=== PATIENT | female | born 1990 | race American Indian/Alaskan Native ===

== ENCOUNTER 2017-10-24 16:27 | Emergency (ER) | payer OTHER ==
[~2017-10-24 16:27] MED LIST: DICL-195 PO; METF-411 PO; ONDA4TAB PO; PREN-127 PO
[2017-10-24 16:31] VITALS: BP 115/72
--- NOTE | 2017-10-24 16:48 | ER Report ---
History and Physical Time Seen By MD: 16:48 Hx. of Stated Complaint: pt presents with r flank pain since yesterday. Had a non obstructive stone in Apr. States pain is different and intermittant, Pt not very active, has been drinking lots of water since stone was discovered HPI/ROS Chief Complaint: "Back Pain" HPI: 26-year-old female presents to the emergency department with her . Her is the primary historian as the patient speaks minimal Malay. The patient started having back pain with chills this morning at 11:00. The pain is located on her right posterior thoracic region. She reports using a herbal remedies from that improved her symptoms but did not resolve the pain. Her past medical history is significant for kidney stone in 2016 and 2017 and the patient is curious if that is the etiology of her pain today. The patient also reports swelling under her left breast. No treatments tried. ROS: Constitutional: reports chills, denies fever Respiratory: denies difficulty breathing or shortness of breath CV: denies chest pain GI/: reports back pain, denies changes in urination, denies changes in bowel patterns musculoskeletal: reports left anterior swelling below the breast, reports right sided thoracic pain Allergies: Coded Allergies: No Known Drug Allergies (Unverified , 10/24/17) Home Meds Active Scripts Ketorolac Tromethamine (KETOROLAC TROMETHAMINE) 10 Mg Tab, 10 MG PO Q6H for 3 Days, #12 TAB Prov:MERT WILBURN 10/24/17 Cyclobenzaprine Hcl (CYCLOBENZAPRINE HCL) 10 Mg Tablet, 10 MG PO TID Y for MUSCLE SPASMS for 5 Days, #15 TAB Prov:MERT WILBURN 10/24/17 Diclofenac Sodium (DICLOFENAC SODIUM) 75 Mg Tablet.dr, 75 MG PO TID, #20 TAB Prov:TYRONE REYES MD 04/24/17 Reported Medications Vits W-Ca,Fe,Fa(<1MG) ( VITAMINS) 1 Each Tablet, 1 EACH PO DAILY, TAB 04/24/17 Metformin Hcl (METFORMIN HCL) 500 Mg Tablet, 1 TAB PO BID, TAB 04/24/17 Discontinued Scripts Ondansetron (ZOFRAN ODT) 4 Mg Tab.rapdis, 4 MG PO Q6H Y for NAUSEA/VOMITING, # 20 TAB.CHRISSIE 0 Refills Prov:CRESCENCIOTYRONE LAM MD 04/24/17 Past Medical/Surgical History History of kidney stones in 2016 and 2017 Hx Smoking: No Hx Substance Use Disorder: No Hx Alcohol Use: No Constitutional Vital Sign - Last 24 Hours 10/24/17 16:31 Temp 98.4 Pulse 63 Resp 20 B/P (MAP) 115/72 Pulse Ox 99 O2 Delivery Room Air Intake and Output 10/24/17 10/24/17 10/25/17 14:59 22:59 06:59 Intake Total 1000 ml Balance 1000 ml Physical Exam Constitutional: 26-year-old female in no acute distress HEENT: normocephalic, atraumatic, no rhinorrhea, neck midline, no lymphadenopathy Breast: localized swelling palpated under left breast CV: clear S1 S2, no murmurs GI/: normoactive BS, suprapubic sensitivity on palpation, no CVA tenderness Musculoskeletal: moves all extremities, right sided posterior thoracic tenderness on palpation Neuro: interactive, alert and oriented, non-Malay speaking Differential diagnoses considered: UTI, pyelonephritis, kidney stone, muscular spasm Medical Decision Making Data Points Result Diagram: 10/24/17 1733 10/24/17 1733 Laboratory Hematology Test 10/24/17 16:33 10/24/17 17:33 Urine Color Colorless Urine Clarity Clear Urine pH 7.0 pH (4.8-9.5) Urine Specific Dawson 1.000 Urine Protein Negative mg/dL (NEGATIVE) Urine Glucose (UA) Negative mg/dL (NEGATIVE) Urine Ketones Negative mg/dL (NEGATIVE) Urine Blood Negative (NEGATIVE) Urine Nitrite Negative (NEGATIVE) Urine Bilirubin Negative (NEGATIVE) Urine Urobilinogen Negative mg/dL (0.2-1.9) Urine Leukocyte Esterase Negative (NEGATIVE) Urine RBC <1 /HPF (0-2/HPF) Urine WBC <1 /HPF (0-5/HPF) Urine Squamous Epithelial Cells None /LPF (</=FEW) Urine Bacteria Few /HPF (NONE-FEW) Urine Mucus None /HPF (NONE-FEW) Red Blood Count 5.09 M/uL (4.17-5.56) Mean Corpuscular Volume 85.9 fL (80.0-96.0) Mean Corpuscular Hemoglobin 25.5 pg (26.0-33.0) Mean Corpuscular Hemoglobin Concent 29.7 g/dL (32.0-36.0) Red Cell Distribution Width 13.0 % (11.5-14.5) Mean Platelet Volume 8.4 fL (7.2-11.1) Neutrophils (%) (Auto) 53.1 % (39.4-72.5) Lymphocytes (%) (Auto) 35.9 % (17.6-49.6) Monocytes (%) (Auto) 7.2 % (4.1-12.4) Eosinophils (%) (Auto) 3.3 % (0.4-6.7) Basophils (%) (Auto) 0.5 % (0.3-1.4) Nucleated RBC Relative Count (auto) 0.1 /100WBC Neutrophils # (Auto) 3.0 K/uL (2.0-7.4) Lymphocytes # (Auto) 2.0 K/uL (1.3-3.6) Monocytes # (Auto) 0.4 K/uL (0.3-1.0) Eosinophils # (Auto) 0.2 K/uL (0.0-0.5) Basophils # (Auto) 0.0 K/uL (0.0-0.1) Nucleated RBC Absolute Count (auto) 0.00 K/uL Sodium Level 135 mmol/L (137-145) Potassium Level 3.7 mmol/L (3.5-5.0) Chloride Level 99 mmol/L (98-107) Carbon Dioxide Level 24 mmol/L (22-31) Blood Urea Nitrogen 5 mg/dl (7-18) Creatinine 0.60 mg/dl (0.52-1.04) Glomerular Filtration Rate Calc > 60.0 Random Glucose 85 mg/dl (75-110) Calcium Level 9.0 mg/dl (8.4-10.2) Total Bilirubin 0.6 mg/dl (0.2-1.3) Aspartate Amino Transf (AST/SGOT) 28 U/L (0-35) Alanine Aminotransferase (ALT/SGPT) 22 U/L (0-56) Alkaline Phosphatase 39 U/L (0-126) Total Protein 8.3 g/dl (6.3-8.2) Albumin 4.1 g/dl (3.5-5.0) Human Chorionic Gonadotropin, Qual Negative (NEGATIVE) Chemistry Test 10/24/17 16:33 10/24/17 17:33 Urine Color Colorless Urine Clarity Clear Urine pH 7.0 pH (4.8-9.5) Urine Specific Dawson 1.000 Urine Protein Negative mg/dL (NEGATIVE) Urine Glucose (UA) Negative mg/dL (NEGATIVE) Urine Ketones Negative mg/dL (NEGATIVE) Urine Blood Negative (NEGATIVE) Urine Nitrite Negative (NEGATIVE) Urine Bilirubin Negative (NEGATIVE) Urine Urobilinogen Negative mg/dL (0.2-1.9) Urine Leukocyte Esterase Negative (NEGATIVE) Urine RBC <1 /HPF (0-2/HPF) Urine WBC <1 /HPF (0-5/HPF) Urine Squamous Epithelial Cells None /LPF (</=FEW) Urine Bacteria Few /HPF (NONE-FEW) Urine Mucus None /HPF (NONE-FEW) White Blood Count 5.6 k/uL (4.5-11.0) Red Blood Count 5.09 M/uL (4.17-5.56) Hemoglobin 13.0 g/dL (12.0-16.0) Hematocrit 43.7 % (34.0-47.0) Mean Corpuscular Volume 85.9 fL (80.0-96.0) Mean Corpuscular Hemoglobin 25.5 pg (26.0-33.0) Mean Corpuscular Hemoglobin Concent 29.7 g/dL (32.0-36.0) Red Cell Distribution Width 13.0 % (11.5-14.5) Platelet Count 186 K/uL (150-450) Mean Platelet Volume 8.4 fL (7.2-11.1) Neutrophils (%) (Auto) 53.1 % (39.4-72.5) Lymphocytes (%) (Auto) 35.9 % (17.6-49.6) Monocytes (%) (Auto) 7.2 % (4.1-12.4) Eosinophils (%) (Auto) 3.3 % (0.4-6.7) Basophils (%) (Auto) 0.5 % (0.3-1.4) Nucleated RBC Relative Count (auto) 0.1 /100WBC Neutrophils # (Auto) 3.0 K/uL (2.0-7.4) Lymphocytes # (Auto) 2.0 K/uL (1.3-3.6) Monocytes # (Auto) 0.4 K/uL (0.3-1.0) Eosinophils # (Auto) 0.2 K/uL (0.0-0.5) Basophils # (Auto) 0.0 K/uL (0.0-0.1) Nucleated RBC Absolute Count (auto) 0.00 K/uL Glomerular Filtration Rate Calc > 60.0 Calcium Level 9.0 mg/dl (8.4-10.2) Total Bilirubin 0.6 mg/dl (0.2-1.3) Aspartate Amino Transf (AST/SGOT) 28 U/L (0-35) Alanine Aminotransferase (ALT/SGPT) 22 U/L (0-56) Alkaline Phosphatase 39 U/L (0-126) Total Protein 8.3 g/dl (6.3-8.2) Albumin 4.1 g/dl (3.5-5.0) Human Chorionic Gonadotropin, Qual Negative (NEGATIVE) Urinalysis Test 10/24/17 16:33 Urine Color Colorless Urine Clarity Clear Urine pH 7.0 pH (4.8-9.5) Urine Specific Dawson 1.000 Urine Protein Negative mg/dL (NEGATIVE) Urine Glucose (UA) Negative mg/dL (NEGATIVE) Urine Ketones Negative mg/dL (NEGATIVE) Urine Blood Negative (NEGATIVE) Urine Nitrite Negative (NEGATIVE) Urine Bilirubin Negative (NEGATIVE) Urine Urobilinogen Negative mg/dL (0.2-1.9) Urine Leukocyte Esterase Negative (NEGATIVE) Urine RBC <1 /HPF (0-2/HPF) Urine WBC <1 /HPF (0-5/HPF) Urine Squamous Epithelial Cells None /LPF (</=FEW) Urine Bacteria Few /HPF (NONE-FEW) Urine Mucus None /HPF (NONE-FEW) ED Course/Re-evaluation ED Course 26-year-old female presents to the Emergency Department with back pain. She has a positive past medical history of kidney stones and constipation. History and physical examination obtained. Differential diagnoses considered and shared with the family. The patient was administered 1 liter of NS in the Emergency Department. CBC, CMP, UA, and abdominal and pelvic CT obtained. Laboratory tests are not indicative of infection. CT results rule out kidney stone but did suggest bladder distention and a post void residual was assessed. The patient' s post void residual was 277 mls. The patient's right thoracic pain and swelling of the left anterior chest is likely a muscular spasm. The patient has been sent home for self-care. She was prescribed Flexeril and Toradol for pain and encouraged to see a physical therapist. Decision to Disposition Date: Oct 24, 2017 Decision to Disposition Time: 19:52 Depart Departure Latest Vital Signs Vital Signs Date Time Temp Pulse Resp B/P (MAP) Pulse Ox O2 Delivery O2 Flow Rate FiO2 10/24/17 16:31 98.4 63 20 115/72 99 Room Air Impression: Primary Impression: Muscle spasm Condition: Improved Disposition: HOME OR SELF-CARE Referrals: SAMEER MORAN MD (PCP) New Scripts Ketorolac Tromethamine (KETOROLAC TROMETHAMINE) 10 Mg Tab 10 MG PO Q6H for 3 Days, #12 TAB Prov: MERT WILBURN 10/24/17 Cyclobenzaprine Hcl (CYCLOBENZAPRINE HCL) 10 Mg Tablet 10 MG PO TID Y for MUSCLE SPASMS for 5 Days, #15 TAB Prov: MERT WILBURN 10/24/17 Patient Instructions: Muscle Spasm (ED) Additional Instructions: Take Flexeril as need for muscular spasm every 4 to [address] after taking Flexeril. Take Toradol as need for pain every 4 to 6 hours. Consider seeing a physical therapist for muscular pain. Return to the Emergency department if you condition worsens. MERT WILBURN Oct 24, 2017 16:48
[2017-10-24] MEDS ORDERED: NS(*) 0.9% 1000 ML BAG 1,000 ML IV ONE (17:05)
[2017-10-24] MEDS ORDERED: IOPAMIDOL 76% 75 ML INFUS BTL 75 ML ONE (17:28)
[2017-10-24 17:40] LABS: PLATELET COUNT, AUTOMATED 186 K/uL (150-450)
--- NOTE | 2017-10-24 19:08 | RADIOLOGY IMAGING REPORT ---
FACILITY: [facility] PATIENT NAME: Destinee Welch : 1990 MR: [id number] V: [id number] EXAM DATE: ORDERING PHYSICIAN: MERT WILBURN TECHNOLOGIST: [place] [facility] [place]: Destinee Welch : 1990 Visit/Account:[id number] Date of Sevice: 10/24/2017 COMPUTED TOMOGRAPHY OF THE Abdomen and Pelvis with CONTRAST INDICATION: Back pain. TECHNIQUE: Contiguous axial 3.[address] images were obtained through the abdomen and pelvis 75 cc [id number]. Coronal and sagittal reformatted images were submitted. COMPARISON: April 24, 2017 CT. FINDINGS: Lung bases: The lung bases are clear. Liver and hepatic vasculature: Probable small subcapsular cyst in the right lobe. Gallbladder and bile ducts: Normal gallbladder. Spleen: Normal Pancreas: Normal Adrenals: Normal Kidneys, ureters and bladder: The ureters are mildly prominent. There are no obstructive calculi. Th e bladder is distended. Retroperitoneum and aorta: Normal caliber aorta. GI tract, mesentery and peritoneum: No bowel obstruction. No free fluid or free air. Normal appendix. Uterus and adnexa: Unremarkable uterus. Small volume of fluid in the cul-de-sac is likely physiologic . Bones and soft tissues: No acute osseous abnormality. IMPRESSION: 1. The bladder is distended, and the ureters are mildly dilated bilaterally, but there is no obstruct ally stone. 2. Normal appendix. 3. Otherwise, no evidence of acute intra-abdominal abnormality. One of the following dose optimization techniques was utilized in the performance of this exam: Autom ated exposure control; adjustment of the mA and/or kV according to the patient's size; or use of an i terative reconstruction technique. Specific details can be referenced in the facility's radiology C T exam operational policy. Report Dictated By: Esvin Meza MD at 10/24/2017 6:55 PM Report E-Signed By: Esvin Meza MD at 10/24/2017 7:05 PM WSN:[id number]
[2017-10-24] MEDS ORDERED: KET10 PO (19:47)
[2017-10-24] MEDS ORDERED: CYCL10TA29 PO (19:47)
== END 2017-10-24 19:55 | disposition home or self-care (01) ==
LOC: ER 16:31
DX: M62.830 Muscle spasm of back (principal)
CPT/HCPCS: 74177; 81001; 84703; 85025; 96360; 99284; J7030; Q9967; 82040; 82247; 82310; 82374; 82435; 82565; 82947; 84075; 84132; 84155; 84295; 84450; 84460; 84520